=== PATIENT | male | born 2000 | race Caucasian/White ===

== ENCOUNTER 2019-01-22 15:46 | Emergency (ER) | payer SELFPAY ==
[2019-01-22 15:55] VITALS: BP 124/76
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
== END 2019-01-22 16:19 | disposition home or self-care (01) ==
LOC: ER 15:46
DX: S01.112A Laceration without foreign body of left eyelid and periocular area, initial encounter (principal); Y04.0XXA Assault by unarmed brawl or fight, initial encounter; F17.210 Nicotine dependence, cigarettes, uncomplicated
CPT/HCPCS: 99282